=== PATIENT | female | born 2000 | race Caucasian/White ===

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

== ENCOUNTER 2023-04-09 11:56 | Inpatient (IN) | payer OTHER ==
[~2023-04-09] VITALS: Ht 151.1 cm; Wt 57.2 kg
--- NOTE | 2023-04-09 12:39 | NUR ---
PATIENT HAS BEEN SCREENED AND CATEGORIZED LOW NUTRITION RISK. PATIENT WILL BE SEEN WITHIN 7 DAYS OF ADMISSION. 04/16/[address]
[2023-04-09 13:24] VITALS: BP 118/69; PULSE 100; RESP 16; TEMP 97.9
[2023-04-09] MEDS ORDERED: FERR325E14 PO (13:29)
[2023-04-09] MEDS ORDERED: PRETAB PO (13:29)
[2023-04-09] MEDS ORDERED: MAG SULF 2000 MG/WATER PREMIX 100 ML IV SCH (15:00)
[2023-04-09] MEDS ORDERED: LACTATED RINGERS 500 ML IV SCH (15:00)
[2023-04-09] MEDS ORDERED: TERBUTALINE 1 MG/ML VIAL SUBQ SCH (15:00)
[2023-04-09 15:29] LABS: BASOPHILS % (AUTO) 0.2 % (0.0-2.0); EOSINOPHILS % (AUTO) 0.2 % (0.0-4.0); HEMATOCRIT 37.3 % (36-48); HEMOGLOBIN 12.7 g/dL (12.0-16.0); LYMPHOCYTES # (AUTO) 1.3 K/uL (2.5-16.5); LYMPHOCYTES % (AUTO) 12.3 % (20.5-51.1); MEAN CORPUSCULAR HEMOGLOBIN 33 pg (27-31); MEAN CORPUSCULAR HGB CONC 34 g/dL (33-37); MEAN CORPUSCULAR VOLUME 95.3 fL (80-94); MONOCYTES # (AUTO) 0.4 K/uL (0.8-1.0); MONOCYTES % (AUTO) 4.1 % (1.7-9.3); NEUTROPHILS # (AUTO) 8.6 K/uL (1.8-7.7); NEUTROPHILS % (AUTO) 83.2 % (42.2-75.2); PLATELET COUNT (AUTO) 310 K/uL (140-450); RED BLOOD CELL COUNT(AUTO) 3.91 MIL/uL (4.20-5.40); RED CELL DISTRIBUTION WIDTH 13.9 % (11.6-13.7); WHITE BLOOD COUNT (AUTO) 10.4 K/uL (4.8-10.8)
[2023-04-09 15:29] LABS: APPEARANCE,URINE CLEAR (CLEAR); BILIRUBIN,URINE NEGATIVE (NEGATIVE); BLOOD, URINE NEGATIVE (NEGATIVE); COLOR,URINE YELLOW (YELLOW); LEUKOCYTE ESTERASE ,URINE NEGATIVE (NEGATIVE); NITRITE, URINE NEGATIVE (NEGATIVE); UGLUCOSE NEGATIVE (NEGATIVE)
[2023-04-09] MEDS ORDERED: BETAMETH ACET/BETAMETH NA PH 30 MG/5 ML VIAL IM SCH (15:30)
[2023-04-09] MEDS: LACTATED RINGERS 1,000 ML IV SCH ×2 (15:44→21:40)
[2023-04-09 15:45] LABS: ALBUMIN 2.8 g/dL (3.4-5.0); ANION GAP 13.7 (8-16); CREATININE 0.5 mg/dL (0.6-1.3); MAGNESIUM 1.8 mg/dL (1.8-2.4); POTASSIUM 3.7 mmol/L (3.5-5.1); TOTAL BILIRUBIN 0.7 mg/dL (0.0-1.0)
[2023-04-09] MEDS: MAG SULF 20 GM/H2O PREMIX DRIP 500 ML IV PRN (17:03)
[2023-04-09] MEDS ORDERED: NIFEdipine 10 MG CAPLF ONE (17:59)
[2023-04-09] MEDS ORDERED: NIFEdipine 10 MG CAPLF PO SCH (18:00)
[2023-04-10] MEDS: NIFEdipine 10 MG CAPLF PO SCH ×3 (00:43→12:07)
[2023-04-10] MEDS: MAG SULF 20 GM/H2O PREMIX DRIP 500 ML IV PRN (03:29)
[2023-04-10] MEDS: LACTATED RINGERS 1,000 ML IV SCH (06:26)
== END 2023-04-10 15:25 | disposition home or self-care (01) | DRG 566 ==
LOC: MLD 11:56 → OBSVTOIN 15:00 → MLD 15:24
PROVIDERS: ADMIT Obstetrics & Gynecology; ATTEND Obstetrics & Gynecology
DX: O26.893 Other specified pregnancy related conditions, third trimester (principal); R10.2 Pelvic and perineal pain; Z20.822 Contact with and (suspected) exposure to COVID-19; Z3A.35 35 weeks gestation of pregnancy
CPT/HCPCS: 36415; 80053; 81003; 83735; 84550; 85025; 86592; 86886; 86900; 86901; 93005; J0702; J3105; J3475